=== PATIENT | male | born 1960 | race American Indian/Alaskan Native ===

== ENCOUNTER 2021-01-06 04:55 | Inpatient (IN) | payer OTHER ==
[2021-01-06] MEDS ORDERED: SODIUM CHLORIDE 0.9% 500 ML 500 ML IV ONE (06:12)
[2021-01-06] MEDS ORDERED: ACETAMINOPHEN 325 MG TAB PO ONE (06:14)
[2021-01-06] MEDS ORDERED: cefTRIAXone/NS 1 GM/50 ML 1 GM/50 ML BAG IV ONE ×2 (06:15→11:19)
--- NOTE | 2021-01-06 06:42 | XRay Report ---
CHEST 1 VIEW INDICATION / CLINICAL INFORMATION: hypertension. COMPARISON: None available. FINDINGS: SUPPORT DEVICES: None. HEART / MEDIASTINUM: There is mild apparent widening of the superior mediastinum, possibly secondary to technique. LUNGS / PLEURA: No significant pulmonary or pleural abnormality. No pneumothorax. ADDITIONAL FINDINGS: No significant additional findings. IMPRESSION: 1. Mild apparent widening of the superior mediastinum is possibly secondary to technique. However, if there is clinical concern for aortic pathology, a CTA chest could be performed for further evaluatio n. Signer Name: Gaby Shelley MD Signed: 01/06/2021 6:38 AM Workstation Name: [id number]
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
[2021-01-06 07:18] LABS: Basophils % (Auto) 0.3 % (0.0-1.8); Hematocrit 42.5 % (35.5-45.6); Hemoglobin 14.8 gm/dl (11.8-15.2); Lymphocytes # (Auto) 1.1 K/mm3 (1.2-5.4); Lymphocytes % (Auto) 6.1 % (13.4-35.0); Mean Corpuscular HGB Conc 35 % (32-34); Mean Corpuscular Volume 94 fl (84-94); Monocytes % (Auto) 11.2 % (0.0-7.3); Platelet Count 104 K/mm3 (140-440); Red Blood Count 4.52 M/mm3 (3.65-5.03); Red Cell Distribution Width 14.5 % (13.2-15.2)
[2021-01-06 07:32] LABS: Alanine Aminotransferase 18 units/L (7-56); Albumin 3.4 g/dL (3.9-5); BUN/Creatinine Ratio 14; Bilirubin,Direct 0.3 mg/dL (0-0.2); Blood Urea Nitrogen 20 mg/dL (9-20); Calcium 8.3 mg/dL (8.4-10.2); Hemolysis Index 5
[2021-01-06 07:33] LABS: INR 1.15 (0.87-1.13)
[2021-01-06 07:41] LABS: Creatine Kinase MB < 1.0 ng/mL (0.0-4.0)
--- NOTE | 2021-01-06 07:48 | XRay Report ---
PELVIC RADIOGRAPH, ONE VIEW INDICATION / CLINICAL INFORMATION: Fall, pain COMPARISON: None available. FINDINGS: BONES / JOINT(S): No acute displaced fracture or subluxation. There is advanced osteoarthritis of bot h hips. SOFT TISSUES: No significant abnormality. ADDITIONAL FINDINGS: None. Signer Name: Gaby Shelley MD Signed: 01/06/2021 7:43 AM Workstation Name: [id number]
[2021-01-06 08:04] LABS: Bilirubin,Urine NEG (Negative); Blood,Urine SM (Negative); Color,Urine Amber (Yellow); Mucus,Urine 3+ /HPF
[2021-01-06 08:06] LABS: Amphetamine Screen,Urine Negative; Benzodiazepines Screen,Urine Negative; Cocaine Screen,Urine Negative; Methadone Screen,Urine Negative; Opiate Screen,Urine Negative
[2021-01-06 08:29] LABS: Cannabinoid Screen,Urine Positive
--- NOTE | 2021-01-06 09:07 | Cat Scan Report ---
CT head/brain wo con INDICATION: Altered Mental Status. TECHNIQUE: All CT scans at this location are performed using CT dose reduction for ALARA by means of automated e xposure control. COMPARISON: None available. FINDINGS: Visualized paranasal and mastoid sinuses are clear. Postop change in the frontal lobes bilaterally, w ith considerable encephalomalacia inferiorly. There is also extensive periventricular low-attenuation , consistent with chronic white matter ischemic change. No appreciable mass effect, hemorrhage or other acute abnormality. IMPRESSION: 1. Considerable postop and chronic changes, but no definite acute abnormality. Signer Name: Travon Lee MD Signed: 01/06/2021 9:02 AM Workstation Name: [id number]
--- NOTE | 2021-01-06 09:43 | XRay Report ---
CHEST PA AND LATERAL VIEWS INDICATION: SON. COMPARISON: None FINDINGS: Support devices: None Heart: Normal Lungs/Pleura: Focal parenchymal disease in the right lower lobe, very worrisome for developing pneumo irina. No pleural fluid. Left lung is clear. IMPRESSION: 1. Right lower lobe disease, worrisome for pneumonia. Signer Name: Travon Lee MD Signed: 01/06/2021 9:39 AM Workstation Name: [id number]
[2021-01-06 09:47] LABS: C-Reactive Protein 21.1 mg/dL (0.00-1.30)
[2021-01-06] MEDS ORDERED: AZITHROMYCIN/NS 500 MG/250 ML 500 MG/250 ML BAG IV ONE (11:21)
[2021-01-06] MEDS ORDERED: HYDROmorphone 1 MG/1 ML INJ IV PRN (11:59)
[2021-01-06] MEDS ORDERED: ACETAMINOPHEN 325 MG TAB PO PRN ×2 (12:59→15:49)
[2021-01-06] MEDS: HYDROmorphone 1 MG/1 ML INJ IV PRN ×2 (15:03→21:27)
[2021-01-06] MEDS ORDERED: oxyCODONE /ACETAMINOPHEN 5-325MG TAB PO PRN (15:49)
[2021-01-06] MEDS ORDERED: METOCLOPRAMIDE 10 MG/2 ML INJ IV PRN (15:49)
[2021-01-06] MEDS ORDERED: MORPHINE 2 MG/1 ML INJ IV PRN (15:49)
[2021-01-06] MEDS ORDERED: ONDANSETRON 4 MG/2 ML INJ IV PRN (15:49)
[2021-01-06] MEDS: SODIUM CHLORIDE 0.9% 1000 ML 1,000 ML IV SCH (17:53)
[2021-01-06] MEDS: FAMOTIDINE 20 MG/2 ML INJ IV SCH ×2 (17:53→21:28)
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
[2021-01-07] MEDS ORDERED: IPRATROPIUM/ALBUTEROL SULFATE 3 ML AMPUL.NEB IH PRN (08:28)
[2021-01-07] MEDS ORDERED: ALBUTEROL 2.5 MG/3 ML NEBU IH PRN (08:47)
[2021-01-07] MEDS ORDERED: FAMOTIDINE 20 MG/2 ML INJ IV SCH (10:00)
[2021-01-07] MEDS: HEPARIN 5,000 UNIT/1 ML VIAL SUB-Q SCH ×2 (10:06→21:45)
[2021-01-07] MEDS: FAMOTIDINE 20 MG/2 ML INJ IV SCH ×2 (10:06→21:45)
[2021-01-07] MEDS: AZITHROMYCIN/NS 500 MG/250 ML 500 MG/250 ML BAG IV SCH ×2 (10:07→12:07)
[2021-01-07 10:37] LABS: Basophils % (Auto) 0.2 % (0.0-1.8); Hematocrit 40.5 % (35.5-45.6); Hemoglobin 13.9 gm/dl (11.8-15.2); Lymphocytes # (Auto) 0.4 K/mm3 (1.2-5.4); Lymphocytes % (Auto) 4.5 % (13.4-35.0); Mean Corpuscular HGB Conc 34 % (32-34); Mean Corpuscular Volume 94 fl (84-94); Monocytes # (Auto) 0.8 K/mm3 (0.0-0.8); Monocytes % (Auto) 8.6 % (0.0-7.3); Platelet Count 100 K/mm3 (140-440); Red Cell Distribution Width 14.9 % (13.2-15.2)
[2021-01-07 11:53] LABS: Alanine Aminotransferase 25 units/L (7-56); Albumin 2.7 g/dL (3.9-5); BUN/Creatinine Ratio 19; Blood Urea Nitrogen 26 mg/dL (9-20); Calcium 8.1 mg/dL (8.4-10.2); Hemolysis Index 17
[2021-01-07] MEDS ORDERED: FLU VACC QUAD 2020-2021 (6 months +)/PF 60 0.5 ML SYRINGE IM ONE (12:00)
[2021-01-07] MEDS ORDERED: PNEUMOCOCCAL 23 Valent 0.5 ML VIAL IM ONE (12:00)
[2021-01-07] MEDS: IPRATROPIUM/ALBUTEROL SULFATE 3 ML AMPUL.NEB IH SCH ×3 (12:55→20:02)
[2021-01-07] MEDS ORDERED: ALBUTEROL 2.5 MG/3 ML NEBU IH SCH (14:00)
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
[2021-01-07] MEDS: cefTRIAXone/NS 2 GM/100 ML 2 GM/100 ML BAG IV SCH (15:49)
[2021-01-07] MEDS ORDERED: ALBUTEROL 8.5 GM MDI INHALATION IH PRN (20:00)
[2021-01-08] MEDS: SODIUM CHLORIDE 0.9% 1000 ML 1,000 ML IV SCH (05:22)
[2021-01-08] MEDS: HEPARIN 5,000 UNIT/1 ML VIAL SUB-Q SCH (09:18)
[2021-01-08] MEDS: FAMOTIDINE 20 MG/2 ML INJ IV SCH (09:18)
[2021-01-08] MEDS: cefTRIAXone/NS 2 GM/100 ML 2 GM/100 ML BAG IV SCH (12:03)
[2021-01-08] MEDS: AZITHROMYCIN/NS 500 MG/250 ML 500 MG/250 ML BAG IV SCH (12:03)
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
[2021-01-08] MEDS ORDERED: POTASSIUM CHLORIDE ER 20 MEQ TAB PO ONE (18:00)
[2021-01-08 19:05] VITALS: BP 136/79
--- NOTE | 2021-01-09 12:45 | Electrocardiograph Report ---
[facility] Test Date: 2021-01-06 Test Time: 06:49:10 Pat Name: ASAEL AMBROSE Department: Room: A357 1 Gender: M [employer] Super[employer]: NEVILLE : 1960 Requested By: PHILIP ALVARENGA Order Number: [id number] Reading MD: Louis Weber Measurements Intervals Clear Rate: 110 P: 57 AL: 182 QRS: 32 QRSD: 96 T: 30 QT: 325 QTc: 436 Interpretive Statements Sinus tachycardia Low voltage QRS No previous ECG available for comparison Electronically Signed On 01-09-2021 12:45:25 EDT by Louis Weber
== END 2021-01-08 18:40 | disposition home or self-care (01) | DRG 194 ==
LOC: EDBD 04:55 → ED 04:55 → 3A 11:23
PROVIDERS: ADMIT Internal Medicine; ATTEND Internal Medicine
PROC: 4A033R1 Measurement of Arterial Saturation, Peripheral, Percutaneous Approach (ICD-10-PCS; 2021-01-06)
PROC: 3E0234Z Introduction of Serum, Toxoid and Vaccine into Muscle, Percutaneous Approach (ICD-10-PCS; principal; 2021-01-07)
DX: J18.9 Pneumonia, unspecified organism (principal); N17.9 Acute kidney failure, unspecified; R65.10 Systemic inflammatory response syndrome (SIRS) of non-infectious origin without acute organ dysfunction; M16.0 Bilateral primary osteoarthritis of hip; I10 Essential (primary) hypertension; D69.6 Thrombocytopenia, unspecified; E86.9 Volume depletion, unspecified; E87.6 Hypokalemia; F17.200 Nicotine dependence, unspecified, uncomplicated; Z20.822 Contact with and (suspected) exposure to COVID-19
CPT/HCPCS: 36415; 70450; 71045; 71046; 72170; 80048; 80053; 80076; 80307; 81001; 82140; 82550; 82553; 82728; 82805; 82947; 83036; 83615; 83735; 83880; 84145; 85025; 85379; 85610; 86140; 87040; 87086; 93005; 94640; 96374; 99406; G0378; J0456; J0696; J1170; J1644; J2405; J7030; J7040; U0003